=== PATIENT | female | born 1985 | race Caucasian/White ===

== ENCOUNTER 2021-03-03 12:29 | Emergency (ER) | payer MEDICAID ==
[~2021-03-03] VITALS: Ht 182.9 cm; Wt 73.0 kg
[2021-03-03 12:35] VITALS: BP 133/78
[2021-03-03] MEDS ORDERED: SULF1TAB48 PO (12:55)
[2021-03-03] MEDS ORDERED: CEPH500T PO (12:55)
== END 2021-03-03 13:11 | disposition home or self-care (01) ==
LOC: ER 12:29
DX: L03.90 Cellulitis, unspecified (principal); R50.9 Fever, unspecified; F15.10 Other stimulant abuse, uncomplicated
CPT/HCPCS: 99281